=== PATIENT | female | born 1945 | race Caucasian/White ===

== ENCOUNTER → 2024-03-02 10:44 | Outpatient (REF) | payer OTHER, SELFPAY | LOC: WDC 10:44 | PROVIDERS: ATTENDING PHYSICIAN Family Medicine | DX: Z12.31 Encounter for screening mammogram for malignant neoplasm of breast (principal) | CPT/HCPCS: 77063; 77067 ==

== ENCOUNTER 2024-05-08 12:20 | Inpatient (IN) | payer OTHER, SELFPAY ==
[2024-05-07] VITALS (8 sets, daily range): BP systolic 105–148; BP diastolic 61–80
--- NOTE | 2024-05-07 16:16 | ED.GENMED ---
History of Present Illness
General
Chief Complaint: Weakness
Source: patient
Exam Limitations: none
Time Seen by Provider: 05/07/24 15:07
Nursing documentation reviewed up to this point in time: agreed with
History of Present Illness
History of Present Illness:
78-year-old female with past medical history of frontal lobe dementia, asthma anemia presenting to the emergency department today with concerns of difficulty ambulating at home with her . According to she is otherwise at baseline but
is unable to specifically describe her symptoms she has been saying her left arm hurts. She otherwise has significant dementia and is not able to symptoms. The denies any additional symptoms she lives at home with him as primary workers' compensation hearings officer.
Past History
Past History
ED Past Medical History: Asthma, Valvular disease (MVP) and Hypothyroidism
ED Past Surgical History: Orthopedic
Social History
Tobacco: Non-smoker
Alcohol: Occasional
Drug: None
Personal:
Living: with family
Review of Systems
Review of Systems
Allergies reviewed?: Yes
All Other Systems: ROS reviewed and negative except as documented in HPI and ROS
Phy Exam
Physical Exam
Physical Exam:
GENERAL: Alert , in no apparent distress
EYE: pupils equal and reactive
NECK: Supple, no significant adenopathy.
ENT: o/p clr, mmm.
CARDIAC: Regular rate and rhythm .
LUNGS: Clear breath sounds bilaterally, no acute respiratory distress, no wheezes/rales/rhonchi
ABDOMEN: Soft, without focal tenderness, no r/g, no cvat
NEUROLOGICAL: Alert not oriented no focal neuro deficits
SKIN: Warm and dry, skin intact.
MUSCULOSKELETAL: Tenderness palpation to the left wrist no overlying skin changes no edema, well perfused.
PSYCH: Normal and appropriate interaction.
Course
Orders/Labs/Results
Orders:
Orders
05/07/24 15:27
EKG [Electrocardiogram (*1)] Urgent
Reason for Study: Fatigue / Weakness
CT Head W/o Iv Contrast Urgent
Comment:
Reason For Exam: ams
CR Wrist - Left Min 3 Views Urgent
Comment:
Reason For Exam: wrist pain
Pt Eval And Treat Urgent
Treatment: truoble walking dementia
Activity Level: Ambulate
05/07/24 15:28
EKG- Treatment ONCE
05/07/24 16:18
Urinalysis Reflex To Culture Urgent
Date Specimen was Collected: 05/07/24
Time Specimen was Collected: 16:17
Urine Microscopic Reflex Cult Urgent
05/07/24 16:54
Complete Blood Count/With Diff Urgent
Comprehensive Metabolic Panel Urgent
Free T4 Urgent
TSH Reflex To Free T4 Urgent
05/07/24 18:52
0.9% Sodium Chloride 500 ml [Nss] 500 ml IV BOLUS
05/07/24 22:48
Troponin I Urgent
Abnormal Lab Results
05/07/24 05/07/24
16:18 16:54
WBC 16.5 H 10^3/uL
(4.8-10.8)
RBC 3.72 L 10^6/uL
(4.20-5.40)
Hgb 11.5 L g/dL
(12.0-16.0)
Hct 32.9 L %
(37.0-47.0)
Abs Immat Gran (auto) 0.1 H 10^3/uL
(0-0.05)
Absolute Neuts (auto) 14.5 H 10^3/uL
(1.4-6.5)
Absolute Lymphs (auto) 0.6 L 10^3/uL
(1.2-3.4)
Absolute Monos (auto) 1.3 H 10^3/uL
(0.1-0.6)
Neutrophils % 87.6 H %
(42.2-75.2)
Lymphocytes % 3.8 L %
(20.5-51.1)
Carbon Dioxide 21 L mmol/L
(22-30)
BUN 22 H mg/dl
(7-17)
Glucose 139 H mg/dl
(70-99)
AST 38 H U/L
(14-36)
TSH (Reflex) 0.12 L uIU/ml
(0.47-4.68)
Urine Ketones 2+ A
(Negative)
Ur Occult Blood Reflex 3+ A
(Negative)
Urine Bilirubin 1+ A
(Negative)
Urine RBC 3-6 A /HPF
(0-2)
Urine Albumin (Reflex) 1+ A
(Neg - Trace)
05/07/24 16:54
05/07/24 16:54
Vital Signs
Initial and Last Documented VS:
Initial Vital Signs
Temp Pulse Resp BP Pulse Ox
98.5 F 101 16 124/80 99
05/07/24 14:07 05/07/24 14:07 05/07/24 14:07 05/07/24 14:07 05/07/24 14:07
Last Documented Vital Signs
Temp Pulse Resp BP Pulse Ox
98.5 F 64 15 105/61 98
05/07/24 14:07 05/07/24 23:30 05/07/24 23:30 05/07/24 23:00 05/07/24 21:15
MDM/Problems Addressed
MDM/Problems Addressed:
78-year-old female presenting to the emergency department today with difficulty ambulating at home. Not able to describe any symptoms or concerns she has late stage dementia she difficulty ambulating today according to the with the primary
workers' compensation hearings officer. Mental status is otherwise at baseline according to the . Labs showing elevated white count of 16.5 hemoglobin 11.5 BUN elevated 22 creatinine 0.6 patient was given fluids as this may indicate some degree of dehydration otherwise
labs unremarkable urinalysis without signs of infection head CT normal x-ray of the wrist where she was having some mild discomfort did not show any acute abnormalities. EKG additionally did show some nonspecific T wave changes that were not
previously present. Troponin was drawn and negative. Otherwise patient does live at home with her plan to admit considering patient with difficulty ambulating for monitoring overnight.
*Critical Care Note
Total Time (30-74mins, 75-104mins- exclusive of procedures): Not Applicable
ED Attending Note
-
Portions of this chart may have been created with voice recognition software.� Occasional wrong word or��sound alike� substitutions may have occurred due to the inherent limitations of voice recognition software.
Discharge Plan
Departure
Patient Disposition: Admit
Date of Disposition: 05/07/24
Time of Disposition: 23:45
Admit to: Med/Surg
Admit to doctor: Soly
Presentation/result/management discussed w/ accepting MD/DO: Hospitalist
Patient with high blood pressure during this ER visit?: No
Condition: Good
Covid-19: Not Applicable
Discharge Problem:
Fatigue, Ambulatory dysfunction
Prescriptions:
No Action
levothyroxine 88 MCG tablet
100 mcg PO DAILY
Referrals:
Italo Bautista MD [Family Provider] -
Interventions
Interventions:
*Risk Screen - Suicide Last Done: 05/07/24 17:00
*General Assessment Last Done: 05/07/24 14:07
*Neglect/Abuse Screening Last Done: 05/07/24 17:00
ED- Fall Risk Assessment Last Done: 05/07/24 17:00
*ED COVID-19 Vaccine History Last Done: 05/07/24 14:07
ED- Cardiac Assessment Last Done: 05/07/24 17:00
ED- Neurological Assessment Last Done: 05/07/24 17:00
ED- Pulmonary Assessment Last Done: 05/07/24 17:00
Discharge Date and Time
Print Language: GERMAN
[2024-05-07 16:28] LABS: Urine Albumin 1+ (Neg - Trace); Urine Bilirubin 1+ (Negative); Urine Character Clear (Clear); Urine Color Yellow; Urine Glucose Negative (Negative); Urine Ketone 2+ (Negative); Urine Leukocyte Negative (Negative); Urine Nitrite Negative (Negative); Urine Occult Blood 3+ (Negative); Urine Urobilinogen 1+ (Neg - 1+)
[2024-05-07 17:01] LABS: % Basophils 0.2 % (0-2); % Immature Granulocytes 0.5 % (0-0.5); % Lymphocytes 3.8 % (20.5-51.1); % Monocytes 7.9 % (1.7-9.3); % Neutrophils 87.6 % (42.2-75.2); Absolute Immature Granulocytes 0.1 10^3/uL (0-0.05); Absolute Lymphocytes 0.6 10^3/uL (1.2-3.4); Absolute Monocytes 1.3 10^3/uL (0.1-0.6); Absolute Neutrophils 14.5 10^3/uL (1.4-6.5); Hematocrit 32.9 % (37.0-47.0); Hemoglobin 11.5 g/dL (12.0-16.0); Mean Corpuscular Hgb 30.9 pg (27.0-31.0); Mean Corpuscular Volume 88.4 fL (81.0-99.0); Mean Platelet Volume 9.3 fL (7.4-10.4); Nucleated Red Blood Cells % 0 %; Platelet Count 363 10^3/uL (130-400); Red Blood Cell Count 3.72 10^6/uL (4.20-5.40); Red Cell Dist. Width 13.2 % (11.5-14.5); White Blood Cell Count 16.5 10^3/uL (4.8-10.8)
[2024-05-07 17:13] LABS: ALT (SGPT) 20 U/L (0-35); AST (SGOT) 38 U/L (14-36); Albumin 4.3 g/dl (3.5-5.0); Alkaline Phosphatase 111 U/L (38-126); Blood Urea Nitrogen 22 mg/dl (7-17); Calcium 10.1 mg/dl (8.4-10.2); Carbon Dioxide 21 mmol/L (22-30); Chloride 104 mmol/L (98-107); Glucose 139 mg/dl (70-99); Potassium 4.5 mmol/L (3.5-5.1); Sodium 137 mmol/L (135-145); Total Bilirubin 1.2 mg/dl (0.2-1.3); Total Protein 7.5 g/dl (6.3-8.2); eGFR > 60.00
[2024-05-07 17:45] LABS: TSH Reflex To Free T4 0.12 uIU/ml (0.47-4.68)
[2024-05-07 18:13] LABS: Free T4 1.74 ng/dl (0.78-2.19)
[2024-05-07] MEDS: NSS 500 IV (18:58)
[2024-05-07 23:19] LABS: Troponin I < 0.012 ng/ml
[2024-05-08] VITALS: BP 96/57
--- NOTE | 2024-05-08 00:10 | HPS.HSE ---
Family Physician
-
Family Physician: Italo Bautista
Chief Complaint
-
unable to walk and mised breakfast due to excessive sleep
History of Present Illness
I could not get any information from the patient as she is very sleepy and has dementia
Information gathered by chart review and speaking with the ER staff.
HPI
78M HX Dementia, asthma lives in private residence with , [facility] evaluation for ambulatory dysfunction and sleeping more than usual.
Ambulatory dysfunction and sleeping more than usual per spouse
- concerns of difficulty ambulating at home other garcia baseline per spouse
- denied Falls
- complaints of pain at Lt arm: NEG XR for Fx.
- denies any additional symptom
Significant labs noted for
WCC 16.5
TSH 0.12 low FT4 1.74
Medical History
Past Medical History
Past Medical History: Reports Asthma, Hypothyroidism and Valvular Disease (MVP)
Past Surgical History: Reports Orthopedic
Social History
Unable to obtain full social history at this time due to: Dementia
Tobacco: Non-smoker
Alcohol: Occasional
Drug: None
Personal:
Living: With Family
Family History
Family History: Not pertinent
Allergies / Home Medications
Allergies reflects when Allergies were last updated in [facility].
Home Medications with original date entered in [facility]
Allergy/Medication List:
Allergies
Allergy/AdvReac Type Severity Reaction Status Date / Time
NKA - No Known Allergies Allergy Unknown Uncoded 05/07/24 14:11
Home Medications
levothyroxine 88 mcg tablet 100 mcg PO DAILY 05/07/17
Review of Systems
-
Constitutional: Reports See HPI and Fatigue
EENT: Reports No Symptoms
Respiratory: Reports No Symptoms
Cardiac: Reports No Symptoms
Abdomen/GI: Reports No Symptoms
: Reports No Symptoms
Musculoskeletal: Reports See HPI
Skin: Reports No Symptoms
Neurological: Reports No Symptoms
Endocrine: Reports No Symptoms
Hematologic/Lymphatic: Reports No Symptoms
Psych: Reports No Symptoms
Physical Exam
Vital Signs
Vital Signs
Temp Pulse Resp BP Pulse Ox
98.5 F 64 15 105/61 98
05/07/24 14:07 05/07/24 23:30 05/07/24 23:30 05/07/24 23:00 05/07/24 21:15
Physical Exam
General: No Apparent Distress, Comfortable and Other (lethargic ); No Conversant
HEENT: NormoCephalic and Anicteric
Respiratory: Clear; No Wheezes, Rales or Rhonchi
Cardiac: S1/S2 and Regular Rhythm
Breast: Deferred by me
GI: Soft, Non Tender and Non Distended
Rectal: Deferred by Provider
Genito-urinary: Deferred by me
Musculoskeletal: No Edema
Skin: Warm and Dry
Neuro: No Alert (sleepy )
Psych: Other
Laboratory Results
-
05/07/24 16:54
05/07/24 16:54
Laboratory Results
Total Bilirubin 1.2 mg/dl (0.2-1.3) 05/07/24 16:54
AST 38 U/L (14-36) H 05/07/24 16:54
ALT 20 U/L (0-35) 05/07/24 16:54
Alkaline Phosphatase 111 U/L (38-126) 05/07/24 16:54
Troponin I < 0.012 ng/ml 05/07/24 22:48
Data Reviewed
-
CT Scan: Report Reviewed by me
Medical Tests (Nuc Med, Echo, EKG etc): Report Reviewed by me
Lab Data: Labs Reviewed by me
Old Records: Reviewed
Impression/Plan
-
Reviewed VS: Afebrile HR 65 BP 148/80 ---> 105/60
Data
WCC 16.5
Hgb 11.5
CO2 21
BUN 22
unremarkable Cr
BG 139
NEG TPNI
TSH 0.12 low
FT4 1.74
EKG
NORMAL SINUS RHYTHM
ST and T WAVE ABNORMALITY, CONSIDER INFERIOR ISCHEMIA
ST and T WAVE ABNORMALITY, CONSIDER ANTEROLATERAL ISCHEMIA
ABNORMAL ECG
WHEN COMPARED WITH ECG OF 25-JUL-2022 14:21,
T WAVE INVERSION NOW EVIDENT IN ANTEROLATERAL LEADS
Unremarkable UA
Wrist XR
Degenerative changes.
No findings to confirm recent cortical fracture.
HCT
No acute intracranial abnormality.
No interval change.
NO PRIOR hospitalist admission:
ASSESSMENT & PLAN
Pending Rx reconciliation
Ambulatory dysfunction due to weakness- off from baseline ?
Sleepiness ? AMS DDX : acute infection
- HX Dementia
- Unremarkable UA
- NEG HCT
- check Covid Ag
- CXR
- empiric IVF
- PT to eval
Low TSH , nl FT4 : suspect sick euthyroid
- cont current dose of LT4
- repeat TSH in 2 weeks
DVT Px: LMWH
Code: Full
Obs MS
[2024-05-08 00:51] LABS: COVID-19 Antigen Negative (Negative)
[2024-05-08 01:16] VITALS: BMI 16.3
[2024-05-08] MEDS: NSS 1000 IV ×2 (01:21→13:02)
[2024-05-08 01:28] VITALS: BP 128/73
--- NOTE | 2024-05-08 01:50 | PTCARENOTE ---
Pt received from ED via stretcher. AAOx1, drowsy, will not open eyes to command. Wiped down w/bathing cloths, attends placed. Full physical assessment documented. Pt does not follow command or converse appropriately w/staff. Made NPO at this
time since unable to perform swallow screen. Speech consult entered per protocol. Bed alarm in place for safety. NSS infusing via #20 LAC without complication. No-no placed to LUE. Call cheung within reach. Plan of care ongoing.
[2024-05-08 08:00] VITALS: BP 130/70
[2024-05-08 09:16] LABS: Hematocrit 31.6 % (37.0-47.0); Hemoglobin 10.5 g/dL (12.0-16.0); Mean Corp Hgb Conc. 33.2 g/dL (33.0-37.0); Mean Corpuscular Hgb 30.6 pg (27.0-31.0); Mean Corpuscular Volume 92.1 fL (81.0-99.0); Mean Platelet Volume 10.1 fL (7.4-10.4); Platelet Count 368 10^3/uL (130-400); Red Blood Cell Count 3.43 10^6/uL (4.20-5.40); Red Cell Dist. Width 13.2 % (11.5-14.5); White Blood Cell Count 13.7 10^3/uL (4.8-10.8)
[2024-05-08 09:35] LABS: Blood Urea Nitrogen 22 mg/dl (7-17); Calcium 9.3 mg/dl (8.4-10.2); Carbon Dioxide 19 mmol/L (22-30); Chloride 106 mmol/L (98-107); Estimated Creatinine Clearance 59 ml/min; Glucose 107 mg/dl (70-99); Potassium 4.2 mmol/L (3.5-5.1); Sodium 137 mmol/L (135-145); eGFR > 60.00
[2024-05-08 09:39] LABS: Procalcitonin 0.39 ng/ml (0.0-0.25)
--- NOTE | 2024-05-08 11:29 | W.PN.HOSP.TC ---
Today's Communication/Plan
-
see outlined plan
Assessment / Plan
Assessment / Plan
Assessment:
Leukocytosis
- UA noted; Ucx ordered
- CXR: Linear opacity in the left midlung most compatible with subsegmental atelectasis or scarring. No focal consolidation, pleural effusion, or pneumothorax. The cardiomediastinal silhouette is normal.
- follow Bcx
- start empiric Rocephin, Doxy with CXR findings, procal slightly positive. Temp of 100.2 today
- continue IVF
Acute ambulatory dysfunction
- suspected related to above process
- when more able, PT/OT
TME from Ativan and leukocytosis, PNA process
Fronto-temporal dementia
- receiving prn Ativan by PCP; will stop
- mental status workup
- need home med rec to verify if any other meds
- consider EEG
Hypothyroidism
- check TSH
- continue LT4
Hx of Asthma
DVT ppx: Lovenox
Code: Full
Anticipated Discharge: > 48 hours
Subjective/Interval History
-
Date of Service: May 08, 2024
somnolent, arousable, not oriented
Objective Data
-
Labs:
Laboratory Results
05/08/24
07:49
WBC 13.7 H
Hgb 10.5 L
Hct 31.6 L
Plt Count 368
Sodium 137
Potassium 4.2
Chloride 106
Carbon Dioxide 19 L
BUN 22 H
Creatinine 0.5 L
Glucose 107 H
Calcium 9.3
Vital Signs:
Vital Signs
Temp Pulse Resp BP Pulse Ox
100.2 F 83 18 130/70 99
05/08/24 08:00 05/08/24 08:00 05/08/24 08:00 05/08/24 08:00 05/08/24 08:00
I&O
05/07/24 05/08/24 05/09/24
06:59 06:59 06:59
Intake Total 400 / 400
Balance 400 / 400
Physical Exam
-
General: No Apparent Distress and Appears Chronically Ill
HEENT: Normocephalic and Atraumatic
Respiratory: Negative Wheezes or Rales
Cardiac: Regular Rhythm and S1/S2
GI: Soft
Genito-urinary: No Costovertebral Tender
Psych: Apparent Dementia
Data Reviewed
-
Total Time Spent with Patient (in minutes): 41
Labs: Labs Reviewed by me
[2024-05-08] MEDS: STERILE WATER FOR INJECTION 10 ML IV (12:32)
[2024-05-08] MEDS: ROCEPHIN 1000 MG IV (12:32)
[2024-05-08 12:51] VITALS: BMI 16.3
[2024-05-08] MEDS: VIBRAMYCIN 260 MG IV ×2 (13:01→23:55)
--- NOTE | 2024-05-08 14:22 | PTOTSP ---
ST Acute Care Evaluation
Pt presents with fairly functional oral phase and suspected mild pharyngeal phase dysphagia in the setting of TME vs advanced frontal dementia.
Recommendations:
- Initiate PO diet of SOFT BITE SIZED SOLIDS with THIN LIQUIDS (NO STRAWS) - SINGLE SIPS ONLY; meds whole in puree.
- Aspiration precautions: HOB fully upright for all PO intake; pt must be fully awake/alert; FULL 1:1 assistance/supervision with all PO intake; SINGLE SIPS ONLY; small bites/sips; alternate bites/sips.
- If pt shows consistent s/s of aspiration even with compensatory strategies listed above, please make pt NPO and re-consult [employer].
- [employer] will continue to follow to monitor pt's mentation and PO diet tolerance as well as determine whether a video fluoroscopic swallow study would be warranted.
[2024-05-08 16:00] VITALS: BP 126/78
--- NOTE | 2024-05-08 16:09 | PTCARENOTE ---
Pt alert to self only. Pt not very verbal and when speaks is disoriented conversation.Does not follow commands very well. Pt sleeping most of the day, arousable to verbal and touch. Pt does turn and reposition herself in bed. Pt is an assist x2 OOB
with the walker. Pt did ambulate to bathroom. at the bedside. Bed alarm on for safety. Call cheung is within reach
[2024-05-08] MEDS: LOVENOX 30 MG SC (17:24)
[2024-05-08 23:19] VITALS: BP 118/68
[2024-05-09] MEDS: NSS 1000 IV (02:18)
[2024-05-09] MEDS: SYNTHROID 88 MCG PO (05:52)
[2024-05-09 06:00] VITALS: BMI 16.3
[2024-05-09 07:00] VITALS: BP 124/78
[2024-05-09 07:37] LABS: % Basophils 0.2 % (0-2); % Eosinophils 0.1 % (0-6); % Immature Granulocytes 0.5 % (0-0.5); % Lymphocytes 7.8 % (20.5-51.1); % Monocytes 8.9 % (1.7-9.3); % Neutrophils 82.5 % (42.2-75.2); Absolute Immature Granulocytes 0.1 10^3/uL (0-0.05); Absolute Lymphocytes 0.9 10^3/uL (1.2-3.4); Absolute Neutrophils 9.3 10^3/uL (1.4-6.5); Hematocrit 26.9 % (37.0-47.0); Hemoglobin 9.4 g/dL (12.0-16.0); Mean Corp Hgb Conc. 34.9 g/dL (33.0-37.0); Mean Corpuscular Hgb 30.9 pg (27.0-31.0); Mean Corpuscular Volume 88.5 fL (81.0-99.0); Mean Platelet Volume 9.1 fL (7.4-10.4); Nucleated Red Blood Cells % 0 %; Platelet Count 353 10^3/uL (130-400); Red Blood Cell Count 3.04 10^6/uL (4.20-5.40); Red Cell Dist. Width 13.4 % (11.5-14.5); White Blood Cell Count 11.3 10^3/uL (4.8-10.8)
[2024-05-09 07:45] LABS: Ammonia < 9 umol/L (9-30)
[2024-05-09 08:11] LABS: ALT (SGPT) 16 U/L (0-35); AST (SGOT) 23 U/L (14-36); Albumin 2.9 g/dl (3.5-5.0); Alkaline Phosphatase 90 U/L (38-126); Blood Urea Nitrogen 20 mg/dl (7-17); Calcium 8.6 mg/dl (8.4-10.2); Carbon Dioxide 21 mmol/L (22-30); Chloride 110 mmol/L (98-107); Estimated Creatinine Clearance 58 ml/min; Glucose 124 mg/dl (70-99); Potassium 3.9 mmol/L (3.5-5.1); Sodium 139 mmol/L (135-145); Total Bilirubin 0.6 mg/dl (0.2-1.3); Total Protein 5.7 g/dl (6.3-8.2); eGFR > 60.00
[2024-05-09 09:17] LABS: Folate 4.6 ng/ml (2.76-20); Vitamin B12 322 pg/ml (239-931)
[2024-05-09] MEDS: ROCEPHIN 1000 MG IV (12:26)
[2024-05-09] MEDS: VIBRAMYCIN 260 MG IV ×2 (12:27→23:47)
[2024-05-09] MEDS: STERILE WATER FOR INJECTION 10 ML IV (12:27)
--- NOTE | 2024-05-09 13:23 | W.PN.HOSP.TC ---
Today's Communication/Plan
-
MRI brain
EEG
continue IV abx
monitor mentation off sedating meds
Assessment / Plan
Assessment / Plan
Assessment:
Leukocytosis
- UA noted; Ucx ordered
- CXR: Linear opacity in the left midlung most compatible with subsegmental atelectasis or scarring. No focal consolidation, pleural effusion, or pneumothorax. The cardiomediastinal silhouette is normal.
- + procal
- follow Bcx
- continue Rocephin, Doxy day 2
- continue IVF
Acute ambulatory dysfunction
- suspected related to above process
- when more able, PT/OT
TME from Ativan and leukocytosis, PNA process
Fronto-temporal dementia
- receiving prn Ativan by PCP; will stop
- mental status workup so far negative with normal/baseline labs. B12, folate, Ammonia negative
- CT head negative
- add MRI brain
- add EEG
Hypothyroidism
- low TSH and normal T4 suggestive of sick euthyroid state
- continue LT4
- repeat TFTs in 4 weeks
Hx of Asthma
DVT ppx: Lovenox
Code: Full
Anticipated Discharge: > 48 hours
Subjective/Interval History
-
Date of Service: May 09, 2024
remains mostly somnolent, but arousable with sternal rub
remains confused
Objective Data
-
Labs:
Laboratory Results
05/09/24
07:23
WBC 11.3 H
Hgb 9.4 L
Hct 26.9 L
Plt Count 353
Sodium 139
Potassium 3.9
Chloride 110 H
Carbon Dioxide 21 L
BUN 20 H
Creatinine 0.6
Glucose 124 H
Calcium 8.6
Total Bilirubin 0.6
AST 23
ALT 16
Alkaline Phosphatase 90
Vital Signs:
Vital Signs
Temp Pulse Resp BP Pulse Ox
97.8 F 91 17 124/78 95
05/09/24 07:00 05/09/24 07:00 05/09/24 07:00 05/09/24 07:00 05/09/24 07:00
I&O
05/08/24 05/09/24 05/10/24
06:59 06:59 06:59
Intake Total 400 / 400 1220 / 1220
Balance 400 / 400 1220 / 1220
Physical Exam
-
General: No Apparent Distress and Appears Chronically Ill
HEENT: Normocephalic and Atraumatic
Respiratory: Negative Wheezes or Rales
Cardiac: Regular Rhythm and S1/S2
GI: Soft
Psych: Calm, Confused and Apparent Dementia
Data Reviewed
-
Total Time Spent with Patient (in minutes): 42
Labs: Labs Reviewed by me
--- NOTE | 2024-05-09 14:51 | CM ---
Met with patient's ; patient was off unit in MRI; initial assessment completed
Pharmacy verified: [facility], [facility]
Patient has Dementia. has been primary caregiver and provided total care for his for the past 3 years
PLOF: reported that up until 2-3 days ago, his was able to ambulate and feed self
DME: none
SNF/Home Health utilization history: none
Transportation: will transport home
Plan: Anticipate discharge to home with [facility] care on Friday
[2024-05-09 15:00] VITALS: BP 125/67
--- NOTE | 2024-05-09 18:04 | HOSPNOTE ---
Addendum entered by Alma Josue RN 05/09/24 19:19:
Called patients spouse at 7 pm this evening since I did not hear from him and his son like planned. Spouse asked if we could discuss hospice tomorrow. Reviewed that we certainly could. I asked that hospice team call spouse tomorrow and review
hospice with spouse and son. Reviewed anticipated discharge would be for Friday. Attending updated. More information to follow.
Original Note:
Referral received. Called and spoke to spouse. He asked that I talk to him this evening when his son is present. He states that he will call SN this evening [place]. I provided my phone number. Attending updated. More
information to follow after the spouse calls me back this evening.
[2024-05-09] MEDS: LOVENOX 30 MG SC (18:13)
[2024-05-09 23:22] VITALS: BP 137/78
[2024-05-10] MEDS: SYNTHROID PO (05:21)
[2024-05-10 06:00] VITALS: BMI 16.2
[2024-05-10 06:47] LABS: % Basophils 0.2 % (0-2); % Eosinophils 0.3 % (0-6); % Immature Granulocytes 0.5 % (0-0.5); % Lymphocytes 7.5 % (20.5-51.1); % Neutrophils 83.5 % (42.2-75.2); Absolute Immature Granulocytes 0.1 10^3/uL (0-0.05); Absolute Lymphocytes 0.7 10^3/uL (1.2-3.4); Absolute Monocytes 0.8 10^3/uL (0.1-0.6); Absolute Neutrophils 8.3 10^3/uL (1.4-6.5); Hematocrit 26.6 % (37.0-47.0); Mean Corp Hgb Conc. 33.8 g/dL (33.0-37.0); Mean Corpuscular Hgb 30.4 pg (27.0-31.0); Mean Corpuscular Volume 89.9 fL (81.0-99.0); Mean Platelet Volume 9.5 fL (7.4-10.4); Nucleated Red Blood Cells % 0 %; Platelet Count 368 10^3/uL (130-400); Red Blood Cell Count 2.96 10^6/uL (4.20-5.40); Red Cell Dist. Width 13.4 % (11.5-14.5); White Blood Cell Count 9.9 10^3/uL (4.8-10.8)
[2024-05-10 07:00] VITALS: BP 145/84
[2024-05-10 07:10] LABS: ALT (SGPT) 25 U/L (0-35); AST (SGOT) 35 U/L (14-36); Albumin 2.7 g/dl (3.5-5.0); Alkaline Phosphatase 95 U/L (38-126); Blood Urea Nitrogen 16 mg/dl (7-17); Calcium 8.7 mg/dl (8.4-10.2); Carbon Dioxide 21 mmol/L (22-30); Chloride 109 mmol/L (98-107); Estimated Creatinine Clearance 58 ml/min; Glucose 117 mg/dl (70-99); Potassium 3.6 mmol/L (3.5-5.1); Sodium 139 mmol/L (135-145); Total Bilirubin 0.6 mg/dl (0.2-1.3); Total Protein 5.5 g/dl (6.3-8.2); eGFR > 60.00
--- NOTE | 2024-05-10 09:52 | HOSPNOTE ---
Spoke with spouse and son about hospice and the philosophy. The plan is the patient will be discharged tomorrow Friday 05/11 onto hospice services. Equipment will be delivered today. Case management and Attending aware of plan. Family will be
driving patient home. Once patient is home our hospice nurse will admit onto our services. Patient is now a DNR.
--- NOTE | 2024-05-10 10:05 | CM ---
Case management following for d/c planning
Chart reviewed
Per Hospice nurse Hien Todd, pt will go home on hospice tomorrow 05/11
Hospice Equipment to be delivered today
Family to transport pt home tomorrow between 10:30 - 11AM
CM will follow for d/c needs
Plan - home with Hospice tomorrow 05/11
--- NOTE | 2024-05-10 10:26 | W.PN.HOSP.TC ---
Today's Communication/Plan
-
home hospice arrangements
Assessment / Plan
Assessment / Plan
Assessment:
Leukocytosis
- UA noted; Ucx ordered
- CXR: Linear opacity in the left midlung most compatible with subsegmental atelectasis or scarring. No focal consolidation, pleural effusion, or pneumothorax. The cardiomediastinal silhouette is normal.
- + procal
- follow Bcx
- continue Rocephin, Doxy day 3
Acute ambulatory dysfunction
- suspected related to above process
TME from Ativan and leukocytosis, PNA process
Fronto-temporal dementia
- receiving prn Ativan by PCP; will stop
- mental status workup so far negative with normal/baseline labs. B12, folate, Ammonia negative
- CT head negative
- MRI brain: There are no focal or acute intracranial abnormalities. 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 There is mild cortical and cerebellar atrophy with nonspecific mild white matter
changes as described above.
- EEG pending
Hypothyroidism
- low TSH and normal T4 suggestive of sick euthyroid state
- continue LT4
- repeat TFTs in 4 weeks
Hx of Asthma
DVT ppx: Lovenox
Code: now DNR with hospice
Dispo: long discussion this past weekend with about her FTD dementia, decline, mostly lethargic state, not eating well, malnutrition, and behavior disturbances. Recommended home hospice which he is agreeable. DC planned 05/11.
Anticipated Discharge: Within 24 hours
Subjective/Interval History
-
Date of Service: May 10, 2024
remains somnolent
has agreed for hospice tomorrow
Objective Data
-
Labs:
Laboratory Results
05/10/24
06:05
WBC 9.9
Hgb 9.0 L
Hct 26.6 L
Plt Count 368
Sodium 139
Potassium 3.6
Chloride 109 H
Carbon Dioxide 21 L
BUN 16
Creatinine 0.5 L
Glucose 117 H
Calcium 8.7
Total Bilirubin 0.6
AST 35
ALT 25
Alkaline Phosphatase 95
Vital Signs:
Vital Signs
Temp Pulse Resp BP Pulse Ox
98.0 F 84 17 145/84 98
05/10/24 07:00 05/10/24 07:00 05/10/24 07:00 05/10/24 07:00 05/10/24 07:00
I&O
05/09/24 05/10/24 05/11/24
06:59 06:59 06:59
Intake Total 1220 / 1220 770 / 770
Balance 1220 / 1220 770 / 770
Physical Exam
-
General: No Apparent Distress
HEENT: Normocephalic and Atraumatic
Respiratory: Negative Wheezes
Cardiac: Regular Rhythm and S1/S2
GI: Soft
Genito-urinary: No Costovertebral Tender
Neuro: AO x 3
Hematologic / Lymphatic: No Lymphadenopathy
Psych: Calm
Data Reviewed
-
Total Time Spent with Patient (in minutes): 42
Labs: Labs Reviewed by me
--- NOTE | 2024-05-10 10:59 | EEG.RPT ---
Electroencephalogram Report
Report
ROUTINE EEG REPORT
METHODS
A 21 channel digitized electroencephalogram was performed at [facility]. The 10/20 international system of electrode placement was used. In addition to EEG, the patient was monitored for EKG. The duration of the recording was 28 minutes.
BACKGROUND
Medium amplitude mix of alpha and theta frequencies in the awake state
No normal posterior dominant rhythm seen
No background asymmetry seen
SLEEP
Drowsiness seen, no stage 2 architecture seen
HYPERVENTILATION
Not performed
PHOTIC STIMULATION
Photic stimulation showed no activation
ABNORMAL EEG ACTIVITY
Mild slowing seen. No seizures or interictal epileptiform discharges
CLINICAL EVENTS
None
INTERPRETATION AND CLINICAL CORRELATION
Mildly abnormal EEG significant for mild diffuse slowing of background. This is non-specific as to etiology and indicates mild bihemispheric cortical dysfunction.
Clinical correlation required
[2024-05-10] MEDS: ROCEPHIN 1000 MG IV (11:31)
[2024-05-10] MEDS: VIBRAMYCIN 260 MG IV (11:32)
[2024-05-10] MEDS: STERILE WATER FOR INJECTION 10 ML IV (11:32)
[2024-05-10 15:00] VITALS: BP 133/77
--- NOTE | 2024-05-10 15:18 | PN.CDI ---
CDI
- -
CDI:
Physician Documentation Request
Admit Date: 05/08/24 12:20
Dear Doctor Spike,
Clinical Indicators:
Patient admitted with acute ambulatory dysfunction/PNA process; PMH include frontotemporal dementia.
BMI 16.1
05/11 PN, ' long discussion this past weekend with about her FTD dementia, decline, mostly lethargic state, not eating well, malnutrition...'
05/10 RD note/assessment:'05/10 new dx. Underweight related to suspected inadequate energy intakes as evidenced by BMI'
Albumin levels:
05/07/24 05/09/24 05/10/24
16:54 07:23 06:05
Albumin 4.3 2.9 L 2.7 L
Based on the above information and your assessment, which of the following most accurately represents the patient's nutritional status?
Malnutrition is/was present and is a clinical diagnosis (please specify severity & additional support in the medical record)
Underweight without malnutrition
Cachexia without malnutrition
Other (please specify)
[place] Criteria ([facility] Hospitalist 2017)
2 or more criteria must be present for either
non severe or severe malnutrition
Note that the criteria differs related to the
presence of an acute or chronic illness
Acute Illness Chronic Illness
Energy Intake Non Severe: <75% for >7 days Non Severe: <75% for >1 month
Severe: <50% for >5 days Severe: <75% for >1 month
Weight Loss Non Severe: 1-2% over 1 week Non Severe: 5% over 1 month
5% over 1 month 7.5% over 3 months
7.5% over 3 months 10% over 6 months
1 year N/A 20% over 1 year
Severe: >2% over 1 week Severe: >5% over 1 month
>5% over 1 month >7.5% over 3 months
>7.5% over 3 months >10% over 6 months
1 year N/A >20% over 1 year
Body Fat Non Severe: Mild Decrease Non Severe: Mild Loss
Severe: Moderate Decrease Severe: Severe Loss
Muscle Mass Non Severe: Mild Decrease Non Severe: Mild Loss
Severe: Moderate Decrease Severe: Severe Loss
Fluid Accumulation Non Severe: Mild Accumulation Non Severe: Mild Accumulation
Severe: Moderate to severe Severe: Moderate to severe
accumulation accumulation
[place] Nurse Strength Non Severe: N/A Non Severe: N/A
Severe: Measurably reduced Severe: Measurably reduced
Additional criteria that can be used to Determine if Mild or Moderate Malnutrition (Merck Manual 2018)
Mild Moderate Severe
Albumin gm/dl <3.0 gm/dl <2.5 gm/dl <2.0 gm/dl
Pre Albumin mg/dl <15 gm/dl <10 mg/dl <5.0 mg/dl
BMI <18.5 <17 <16
Use of terms such as suspected, likely, concern for, or probable (associated with a specific diagnosis that is being evaluated, monitored, or treated as if it exists) are acceptable and can be coded in the inpatient setting, when documented at the
time of discharge.
Thank you,
DEXTER Santo RN
CDI Specialist
available via tiger text
Please use your independent medical judgment in providing your response.
[2024-05-10] MEDS: LOVENOX 30 MG SC (17:05)
[2024-05-10 23:05] VITALS: BP 148/88
[2024-05-11] MEDS: VIBRAMYCIN 260 MG IV (00:58)
[2024-05-11] MEDS: SYNTHROID 88 MCG PO (05:47)
[2024-05-11 07:00] VITALS: BP 145/83
--- NOTE | 2024-05-11 07:21 | W.PN.HOSP.TC ---
Today's Communication/Plan
-
dc to home hospice
Assessment / Plan
Assessment / Plan
Assessment:
Leukocytosis
- UA noted; Ucx ordered
- CXR: Linear opacity in the left midlung most compatible with subsegmental atelectasis or scarring. No focal consolidation, pleural effusion, or pneumothorax. The cardiomediastinal silhouette is normal.
- + procal
- follow Bcx
- completed 4 days of Abx
Acute ambulatory dysfunction
- suspected related to above process
TME from Ativan and leukocytosis, PNA process
Fronto-temporal dementia
- receiving prn Ativan by PCP; will stop
- mental status workup so far negative with normal/baseline labs. B12, folate, Ammonia negative
- CT head negative
- MRI brain: There are no focal or acute intracranial abnormalities. 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 There is mild cortical and cerebellar atrophy with nonspecific mild white matter
changes as described above.
- EEG negative
Hypothyroidism
- low TSH and normal T4 suggestive of sick euthyroid state
- continue LT4
Hx of Asthma
Underweight related to suspected inadequate energy
DVT ppx: Lovenox
Code: now DNR with hospice
Dispo: long discussion this past weekend with about her FTD dementia, decline, mostly lethargic state, not eating well, malnutrition, and behavior disturbances. Recommended home hospice which he is agreeable. DC planned today
More than 30 minutes spent in discharge including
Final examination of the patient
Summarizing hospital stay
Instructions for continuing care to all relevant caregivers
Preparation of discharge records, prescriptions, and referral forms
Total time spent (in minutes): 41
Anticipated Discharge: Today
Subjective/Interval History
-
Date of Service: May 11, 2024
no overnight events
Objective Data
-
Vital Signs:
Vital Signs
Temp Pulse Resp BP Pulse Ox
99.0 F 86 17 145/83 96
05/11/24 07:00 05/11/24 07:00 05/11/24 07:00 05/11/24 07:00 05/11/24 07:00
I&O
05/10/24 05/11/24 05/12/24
06:59 06:59 06:59
Intake Total 770 / 770 540 / 540
Balance 770 / 770 540 / 540
Physical Exam
-
General: Appears Chronically Ill
HEENT: Normocephalic
Respiratory: Negative Wheezes
Cardiac: Regular Rhythm and S1/S2
Genito-urinary: No Costovertebral Tender
Musculoskeletal: No Edema
Psych: Apparent Dementia
Data Reviewed
-
Total Time Spent with Patient (in minutes): 44
Labs: Labs Reviewed by me
--- NOTE | 2024-05-11 08:25 | W.DS.TRANS ---
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
-
Discharge Instructions:
Discharge Diagnosis/Procedures progressive dementia, pneumonia
Diet Regular,As tolerated
Activity As tolerated
Bathing Restrictions None
Other Services Hospice
Instructions:
Stand-Alone Forms:
Changes to Home Medications: No
Discharge Medications:
DC Medications w/original date entered in [facility]
levothyroxine 88 mcg tablet 88 mcg PO DAILY 05/09/24
lorazepam 0.5 mg tablet (Ativan) 0.5 mg PO DAILY PRN agitation 05/09/24
Home Medication Changes
Pending Results: No
Total time spent discharging patient (in min): 41
--- NOTE | 2024-05-11 09:44 | CM ---
Case management following for d/c planning
Chart reviewed
Pt for d/c to home with Hospice
Family to transport home
Plan - home with Hospice
== END 2024-05-11 10:20 | disposition hospice, home (50) | DRG 193 ==
LOC: 3 WEST ACU 12:20
PROVIDERS: Physician Assistant; ADMITTING PHYSICIAN Internal Medicine; ATTENDING PHYSICIAN Internal Medicine; EMERGENCY PHYSICIAN Emergency Medicine; FAMILY PHYSICIAN Family Medicine
DX: J18.9 Pneumonia, unspecified organism (principal); G92.8 Other toxic encephalopathy; J98.11 Atelectasis; E46 Unspecified protein-calorie malnutrition; Z68.1 Body mass index [BMI] 19.9 or less, adult; G31.09 Other frontotemporal neurocognitive disorder; F02.80 Dementia in other diseases classified elsewhere, unspecified severity, without behavioral disturbance, psychotic disturbance, mood disturbance, and anxiety; J45.909 Unspecified asthma, uncomplicated; D64.9 Anemia, unspecified; R26.2 Difficulty in walking, not elsewhere classified; E03.9 Hypothyroidism, unspecified; D72.829 Elevated white blood cell count, unspecified; E86.0 Dehydration; I34.1 Nonrheumatic mitral (valve) prolapse; Z66 Do not resuscitate; Z11.52 Encounter for screening for COVID-19
CPT/HCPCS: 70450; 70551; 71045; 73110; 80048; 80053; 81003; 81015; 82140; 82607; 82746; 84145; 84439; 84443; 84484; 85025; 85027; 87040; 87086; 87811; 92610; 93005; 95816; 99285